=== PATIENT | male | born 1975 | race African-American/Black ===

== ENCOUNTER 2025-01-16 12:39 | Emergency (ER) | payer OTHER ==
[~2025-01-16] VITALS: Ht 177.8 cm; Wt 86.7 kg
[~2025-01-16 12:39] MED LIST: DIPH25CA85 PO; EPIN0.3P3 IM; HYDR-4062 PO; IBUP-1554 PO; PRED-554 PO
[2025-01-16 12:40] VITALS: BP 140/92; PULSE 74; RESP 18; TEMP 98.8; O2SAT 97
[2025-01-16] MEDS: NALOXONE HCL 1 MG/ML 2 ML SYRINGE IM ONE (13:53)
[2025-01-16 14:36] LABS: TROPONIN I-HIGH SENSITIVITY 14 ng/L (<76)
== END 2025-01-16 15:08 | disposition home or self-care (01) ==
LOC: EMS 13:30
DX: R07.9 Chest pain, unspecified (principal); F19.10 Other psychoactive substance abuse, uncomplicated
CPT/HCPCS: 99285; 71045; 84484; 36415; 93005; 96372; J2310

== ENCOUNTER 2025-02-18 10:10 | Emergency (ER) | payer OTHER ==
[~2025-02-18] VITALS: Ht 177.8 cm; Wt 81.8 kg
[~2025-02-18 10:10] MED LIST changes: -PRED-554 PO
[2025-02-18 10:14] VITALS: TEMP 97.7
[2025-02-18 11:01] LABS: TROPONIN I-HIGH SENSITIVITY 17 ng/L (<76)
[2025-02-18 11:26] VITALS: BP 150/91; PULSE 97; RESP 18; O2SAT 99
== END 2025-02-18 11:28 ==
LOC: EMS 10:18
DX: R07.9 Chest pain, unspecified (principal); I10 Essential (primary) hypertension; Z91.010 Allergy to peanuts; Z91.018 Allergy to other foods; Z98.890 Other specified postprocedural states
CPT/HCPCS: 71045; 84484; 93005; 99285; 36415-L1; 36415-TC